=== PATIENT | male | born 1945 | race Two or more races ===

== ENCOUNTER 2023-05-29 20:57 | Inpatient (IN) | payer MEDICARE, OTHER ==
[~2023-05-29] VITALS: Ht 175.3 cm; Wt 68.5 kg
[2023-05-29 21:51] LABS: Hematocrit 41.7 % (41.0-53.0); Hemoglobin 14.3 g/dL (13.5-17.5); Mean Corpuscular Hgb Conc. 34.3 g/dL (32.0-36.0); Mean Corpuscular Volume 87.6 fL (80.0-100.0); Red Blood Cells 4.76 10^6/uL (4.5-5.90); Red Cell Distribution Width 13.9 % (11.8-14.3); White Blood Cell 19.4 10^3/uL (4.4-10.8)
[2023-05-29 22:03] LABS: Basophils % (manual) 0 (0.0-2.0); Blast Cells 0; Eosinophils % (manual) 0 (0-7); Metamyelocytes % 0; Myelocytes % 0; Promyelocytes % 0; Reactive Lymphocytes 0
[2023-05-29 22:07] LABS: Alanine Aminotransferase 133 U/L (7-40); Albumin 3.5 g/dL (3.2-4.8); Alkaline Phosphatase 129 U/L (46-116); Anion Gap 9 (5-15); Aspartate Aminotransferase 140 U/L (13-40); BUN/Creatinine Ratio 28.5 (10.0-20.0); Blood Urea Nitrogen 37 mg/dL (9-23); Calcium 8.7 mg/dL (8.7-10.4); Carbon Dioxide 22 mmol/L (20-30); Chloride 108 mmol/L (98-107); Glucose 125 mg/dL (74-106); Potassium 3.3 mmol/L (3.5-5.1); Sodium 139 mmol/L (136-145)
[2023-05-29 22:08] LABS: Bilirubin, Total 1.7 mg/dL (0.2-1.0); Lactic Acid w/Reflex 2.2 mmol/L (0.4-2.0); Total Protein 6.1 g/dL (5.7-8.2)
[2023-05-29 22:15] VITALS: PULSE 115; RESP 33; O2SAT 90
[2023-05-29 22:37] LABS: Anisocytosis Slight; Band Neutrophils % (manual) 7; Lymphocytes % (manual) 2 (10.0-50.0); Monocytes % (manual) 2 (0-12); Platelet Estimate Decreased
[2023-05-30] VITALS (7 sets, daily range): BP systolic 101–113; BP diastolic 61–75; PULSE 61–95; RESP 16–18; TEMP 97.2–98.3; O2SAT 95–97
[2023-05-30] MEDS ORDERED: cefTRIAXone 1GM/50ML D5W 50 ML IV ONE (01:45)
[2023-05-30] MEDS ORDERED: LACTATED RINGER'S 2,700 ML IV ONE (01:45)
[2023-05-30] MEDS ORDERED: AZITHROMYCIN 500MG/ 250ML 250 ML IV ONE (01:45)
[2023-05-30 01:57] LABS: COVID19 ANTIGEN SOFIA FIA NEGATIVE (NEGATIVE)
[2023-05-30 01:58] LABS: Rapid Influenza A Negative (Negative); Rapid Influenza B Negative (Negative)
[2023-05-30] MEDS ORDERED: NITROGLYCERIN 0.4 MG SL TAB SL PRN (05:15)
[2023-05-30] MEDS ORDERED: MORPHINE SULFATE INJ 2 MG/ml SYRG IV PRN (05:15)
[2023-05-30] MEDS ORDERED: ACETAMINOPHEN 325 MG TAB PO PRN (05:15)
[2023-05-30] MEDS ORDERED: POTASSIUM CHL 20 Meq TABLET PO ONE (05:15)
[2023-05-30] MEDS ORDERED: ONDANSETRON HCL 4 MG/2 ML VIAL IV PRN (05:15)
[2023-05-30 07:06] LABS: Urine Bacteria MANY /hpf (None Seen); Urine Blood 3+ /uL (Negative); Urine Clarity CLOUDY (Clear); Urine Color Yellow (Yellow); Urine Protein, UAD 1+ (Negative); Urine Specific Gravity 1.012 (1.001-1.035); Urine Urobilinogen Normal (Negative); Urine WBC 460 /hpf (0 - 3); Urine pH 6.5 (5.0-8.0)
[2023-05-30] MEDS: ENOXAPARIN SOD 40 MG/0.4 ML SYRINGE SC SCH (08:56)
[2023-05-30] MEDS: PANTOPRAZOLE 40 MG TAB PO SCH (08:57)
[2023-05-30] MEDS: SODIUM CHLORIDE 0.9% 1,000 ML IV SCH ×2 (13:30→20:10)
[2023-05-31 01:00] VITALS: BP 115/73; PULSE 70; RESP 16; TEMP 98.4; O2SAT 93
[2023-05-31] MEDS: SODIUM CHLORIDE 0.9% 1,000 ML IV SCH ×4 (02:50→22:50)
[2023-05-31 06:40] LABS: Basophils # (auto) 0 10 ^3/uL (0-0.2); Basophils % (auto) 0.1 % (0.0-2.0); Eosinophils # (auto) 0 10 ^3/uL (0-0.8); Eosinophils % (auto) 0.1 % (0.0-7.0); Hematocrit 37.6 % (41.0-53.0); Lymphocytes % (auto) 6.1 % (10.0-50.0); Mean Corpuscular Hemoglobin 30.2 pg (28.0-32.0); Mean Corpuscular Hgb Conc. 34.6 g/dL (32.0-36.0); Mean Corpuscular Volume 87.3 fL (80.0-100.0); Monocytes # (auto) 0.9 10 ^3/uL (0-1.3); Monocytes % (auto) 5.3 % (0.0-12.0); Neutrophils # (auto) 14.9 10 ^3/uL (1.6-8.6); Neutrophils % (auto) 88.4 % (37.0-80.0); Red Blood Cells 4.31 10^6/uL (4.5-5.90); Red Cell Distribution Width 14.1 % (11.8-14.3); White Blood Cell 16.8 10^3/uL (4.4-10.8)
[2023-05-31 06:47] LABS: INR 1.29 (0.9-1.15); Prothrombin Time 13.3 sec (9.3-11.8)
[2023-05-31 06:54] LABS: Alanine Aminotransferase 138 U/L (7-40); Alkaline Phosphatase 77 U/L (46-116); Anion Gap 8 (5-15); Aspartate Aminotransferase 115 U/L (13-40); BUN/Creatinine Ratio 20.9 (10.0-20.0); Blood Urea Nitrogen 19 mg/dL (9-23); Calcium 7.9 mg/dL (8.7-10.4); Carbon Dioxide 27 mmol/L (20-30); Chloride 111 mmol/L (98-107); Glucose 119 mg/dL (74-106); Potassium 3.2 mmol/L (3.5-5.1)
[2023-05-31 06:55] LABS: Bilirubin, Total 1.1 mg/dL (0.2-1.0); Total Protein 4.8 g/dL (5.7-8.2)
[2023-05-31 07:01] LABS: Sodium 146 mmol/L (136-145)
[2023-05-31 08:06] LABS: PSA Free 0.22 ng/mL; Prostate Specific Antigen 3.1 ng/mL (0.0-4.0)
[2023-05-31 08:15] VITALS: O2SAT 96
[2023-05-31 08:20] VITALS: PULSE 35
[2023-05-31 09:00] VITALS: BP 112/69; PULSE 66; RESP 14; TEMP 98.6; O2SAT 93
[2023-05-31] MEDS: cefTRIAXone 1GM/50ML D5W 50 ML IV SCH (10:17)
[2023-05-31] MEDS: ENOXAPARIN SOD 40 MG/0.4 ML SYRINGE SC SCH (10:19)
[2023-05-31] MEDS: PANTOPRAZOLE 40 MG TAB PO SCH (10:19)
[2023-05-31] MEDS: AZITHROMYCIN 500MG/ 250ML 250 ML IV SCH (10:20)
[2023-05-31 17:00] VITALS: BP 120/70; PULSE 67; RESP 18; TEMP 98.9; O2SAT 94
[2023-05-31 20:00] VITALS: PULSE 80; PULSE 81; RESP 20; O2SAT 95
[2023-06-01] VITALS (7 sets, daily range): BP systolic 131–148; BP diastolic 84–89; PULSE 66–74; RESP 16–18; TEMP 97.9–99.8; O2SAT 94–95
[2023-06-01] MEDS: SODIUM CHLORIDE 0.9% 1,000 ML IV SCH ×3 (05:30→18:33)
[2023-06-01 08:06] LABS: AFP Serum Tumor Marker <1.8 ng/mL (0.0-8.4)
[2023-06-01] MEDS: cefTRIAXone 1GM/50ML D5W 50 ML IV SCH (08:38)
[2023-06-01] MEDS: ENOXAPARIN SOD 40 MG/0.4 ML SYRINGE SC SCH (09:23)
[2023-06-01] MEDS: AZITHROMYCIN 500MG/ 250ML 250 ML IV SCH (09:23)
[2023-06-01 12:07] LABS: Anti-Nuclear Antibody Direct Negative (Negative)
[2023-06-01 13:29] LABS: Hepatitis B Core Total AB Negative (Negative)
[2023-06-01 13:30] LABS: Hepatitis A Total Antibody Positive (Negative); Hepatitis B Surface Antibody Negative (Negative); Hepatitis B Surface Antigen Negative (Negative); Hepatitis C Antibody Negative (Negative)
[2023-06-01] MEDS ORDERED: ERTAPENEM SOD INJ 1 GM in SODIUM CHL 0.9% 50 ML IV ONE (14:15)
[2023-06-02] VITALS (7 sets, daily range): BP systolic 115–139; BP diastolic 75–90; PULSE 66–92; RESP 16–20; TEMP 97.7–98.7; O2SAT 93–96
[2023-06-02] MEDS: SODIUM CHLORIDE 0.9% 1,000 ML IV SCH ×4 (01:30→21:30)
[2023-06-02] MEDS: AZITHROMYCIN 500MG/ 250ML 250 ML IV SCH (09:25)
[2023-06-02] MEDS: ENOXAPARIN SOD 40 MG/0.4 ML SYRINGE SC SCH (09:27)
[2023-06-02] MEDS: ERTAPENEM SOD INJ 1 GM in SODIUM CHL 0.9% 50 ML IV SCH ×2 (10:55→12:31)
[2023-06-03 05:00] VITALS: BP 123/80; PULSE 77; RESP 17; TEMP 99.3; O2SAT 98
[2023-06-03] MEDS: SODIUM CHLORIDE 0.9% 1,000 ML IV SCH ×2 (05:50→11:45)
[2023-06-03 07:24] LABS: Basophils # (auto) 0 10 ^3/uL (0-0.2); Basophils % (auto) 0.4 % (0.0-2.0); Eosinophils # (auto) 0.1 10 ^3/uL (0-0.8); Eosinophils % (auto) 0.8 % (0.0-7.0); Hematocrit 37.1 % (41.0-53.0); Hemoglobin 12.7 g/dL (13.5-17.5); Lymphocytes # (auto) 1.2 10 ^3/uL (0.4-5.4); Lymphocytes % (auto) 10.8 % (10.0-50.0); Mean Corpuscular Hgb Conc. 34.3 g/dL (32.0-36.0); Mean Corpuscular Volume 87.6 fL (80.0-100.0); Monocytes # (auto) 0.7 10 ^3/uL (0-1.3); Neutrophils # (auto) 9.3 10 ^3/uL (1.6-8.6); Red Blood Cells 4.23 10^6/uL (4.5-5.90); White Blood Cell 11.3 10^3/uL (4.4-10.8)
[2023-06-03 08:00] VITALS: PULSE 71; PULSE 87; RESP 20
[2023-06-03 08:05] LABS: Alanine Aminotransferase 122 U/L (7-40); Albumin 2.8 g/dL (3.2-4.8); Alkaline Phosphatase 65 U/L (46-116); Aspartate Aminotransferase 75 U/L (13-40); BUN/Creatinine Ratio 12.7 (10.0-20.0); Blood Urea Nitrogen 10 mg/dL (9-23); Calcium 8.2 mg/dL (8.5-10.1); Carbon Dioxide 25 mmol/L (20-30); Glucose 102 mg/dL (74-106)
[2023-06-03 08:06] LABS: Bilirubin, Total 1.2 mg/dL (0.2-1.0); Total Protein 5.3 g/dL (5.7-8.2)
[2023-06-03] MEDS: ERTAPENEM SOD INJ 1 GM in SODIUM CHL 0.9% 50 ML IV SCH (08:20)
[2023-06-03 08:45] LABS: Anion Gap 6 (5-15); Chloride 109 mmol/L (98-107); Potassium 3.5 mmol/L (3.5-5.1); Sodium 140 mmol/L (136-145)
[2023-06-03 09:58] VITALS: BP 122/71; PULSE 87; RESP 20; TEMP 99.1; O2SAT 95
[2023-06-03] MEDS: AZITHROMYCIN 500MG/ 250ML 250 ML IV SCH (11:44)
[2023-06-03] MEDS: ENOXAPARIN SOD 40 MG/0.4 ML SYRINGE SC SCH (11:44)
[2023-06-03 13:14] LABS: COVID19 ANTIGEN SOFIA FIA NEGATIVE (NEGATIVE)
[2023-06-03 13:20] VITALS: BP 130/76; PULSE 82; RESP 18; O2SAT 93
[2023-06-03 15:10] VITALS: BP 122/71; PULSE 87; RESP 20; TEMP 37.3; O2SAT 95
[2023-06-03 16:14] VITALS: BP 139/76; PULSE 92; RESP 22; TEMP 99.1; O2SAT 95
== END 2023-06-03 18:00 | DRG 871 ==
LOC: EDBD 20:57 → ER 20:57 → TELE 05-30 05:18 → TELE-WESTW 05-30 08:35
PROVIDERS: ADMIT Nurse Practitioner; ATTEND Family Medicine
PROC: 05HC33Z Insertion of Infusion Device into Left Basilic Vein, Percutaneous Approach (ICD-10-PCS; principal; 2023-06-02)
PROC: B54NZZA Ultrasonography of Left Upper Extremity Veins, Guidance (ICD-10-PCS; 2023-06-02)
DX: A41.51 Sepsis due to Escherichia coli [E. coli] (principal); G93.41 Metabolic encephalopathy; J96.01 Acute respiratory failure with hypoxia; J18.9 Pneumonia, unspecified organism; R65.21 Severe sepsis with septic shock; N39.0 Urinary tract infection, site not specified; J98.11 Atelectasis; Z16.12 Extended spectrum beta lactamase (ESBL) resistance; E87.20 Acidosis, unspecified; E87.6 Hypokalemia; E86.0 Dehydration; I10 Essential (primary) hypertension; N40.1 Benign prostatic hyperplasia with lower urinary tract symptoms; F03.90 Unspecified dementia, unspecified severity, without behavioral disturbance, psychotic disturbance, mood disturbance, and anxiety; N39.490 Overflow incontinence; N39.498 Other specified urinary incontinence; R79.89 Other specified abnormal findings of blood chemistry; Z20.822 Contact with and (suspected) exposure to COVID-19; R74.01 Elevation of levels of liver transaminase levels
CPT/HCPCS: 36415; 71045; 71250; 74176; 76705; 80053; 81001; 82105; 82140; 82728; 83605; 84154; 85007; 85025; 85027; 85610; 86038; 86704; 86706; 86708; 86803; 87040; 87077; 87086; 87088; 87186; 87340; 87426; 87804; 93005; 96365; 96366; 96367; 97110; 97116; 97163; 97530; G0378; J0696; J1335

== ENCOUNTER 2023-06-12 16:09 | Inpatient (IN) | payer MEDICARE ==
[~2023-06-12] VITALS: Ht 170.2 cm; Wt 63.7 kg
[2023-06-12 16:30] VITALS: PULSE 106; RESP 26; O2SAT 95
[2023-06-12] MEDS ORDERED: SODIUM CHLORIDE 0.9% 2,100 ML IV ONE (16:45)
[2023-06-12] MEDS ORDERED: metroNIDAZOLE 500MG/100ML 100 ML IV ONE (16:45)
[2023-06-12] MEDS ORDERED: cefTRIAXone 1GM/50ML D5W 50 ML IV ONE (16:45)
[2023-06-12 17:01] LABS: Eosinophils # (auto) 0 10 ^3/uL (0-0.8); Eosinophils % (auto) 0.1 % (0.0-7.0); Neutrophils # (auto) 9.9 10 ^3/uL (1.6-8.6)
[2023-06-12 17:03] LABS: Basophils # (auto) 0.1 10 ^3/uL (0-0.2); Basophils % (auto) 0.5 % (0.0-2.0); Hematocrit 41.2 % (41.0-53.0); Hemoglobin 13.7 g/dL (13.5-17.5); Lymphocytes # (auto) 1.3 10 ^3/uL (0.4-5.4); Lymphocytes % (auto) 10.7 % (10.0-50.0); Mean Corpuscular Hemoglobin 29.6 pg (28.0-32.0); Mean Corpuscular Hgb Conc. 33.3 g/dL (32.0-36.0); Mean Corpuscular Volume 88.9 fL (80.0-100.0); Monocytes # (auto) 0.8 10 ^3/uL (0-1.3); Monocytes % (auto) 6.3 % (0.0-12.0); Neutrophils % (auto) 82.4 % (37.0-80.0); Red Blood Cells 4.64 10^6/uL (4.5-5.90); Red Cell Distribution Width 14.1 % (11.8-14.3); White Blood Cell 12.1 10^3/uL (4.4-10.8)
[2023-06-12 17:13] LABS: Urine Bacteria NONE SEEN /hpf (None Seen); Urine Blood 3+ /uL (Negative); Urine Clarity Clear (Clear); Urine Color RED (Yellow); Urine Protein, UAD 2+ (Negative); Urine Specific Gravity 1.017 (1.001-1.035); Urine WBC 189 /hpf (0 - 3)
[2023-06-12 17:21] LABS: Alanine Aminotransferase 55 U/L (7-40); Albumin 3.3 g/dL (3.2-4.8); Alkaline Phosphatase 74 U/L (46-116); Anion Gap 7 (5-15); Aspartate Aminotransferase 26 U/L (13-40); BUN/Creatinine Ratio 27.1 (10.0-20.0); Blood Alcohol < 3.0 mg/dL (<10); Blood Urea Nitrogen 26 mg/dL (9-23); Calcium 11.6 mg/dL (8.5-10.1); Carbon Dioxide 28 mmol/L (20-30); Chloride 105 mmol/L (98-107); Glucose 120 mg/dL (74-106); Potassium 4.1 mmol/L (3.5-5.1); Sodium 140 mmol/L (136-145); Total Protein 6.6 g/dL (5.7-8.2)
[2023-06-12 19:30] VITALS: PULSE 79; RESP 20; O2SAT 98
[2023-06-12] MEDS ORDERED: ACETAMINOPHEN 325 MG TAB PO PRN (21:00)
[2023-06-12] MEDS ORDERED: ONDANSETRON HCL 4 MG/2 ML VIAL IV PRN (21:00)
[2023-06-13] MEDS ORDERED: ALBUMIN 5% 250 ML IV ONE (03:15)
[2023-06-13 04:54] LABS: Basophils # (auto) 0 10 ^3/uL (0-0.2); Basophils % (auto) 0.4 % (0.0-2.0); Eosinophils # (auto) 0.1 10 ^3/uL (0-0.8); Eosinophils % (auto) 1.3 % (0.0-7.0); Hemoglobin 11.3 g/dL (13.5-17.5); Lymphocytes # (auto) 1.2 10 ^3/uL (0.4-5.4); Lymphocytes % (auto) 15.2 % (10.0-50.0); Mean Corpuscular Hemoglobin 29.7 pg (28.0-32.0); Mean Corpuscular Hgb Conc. 33.3 g/dL (32.0-36.0); Mean Corpuscular Volume 89.1 fL (80.0-100.0); Monocytes # (auto) 0.5 10 ^3/uL (0-1.3); Neutrophils # (auto) 5.9 10 ^3/uL (1.6-8.6); Neutrophils % (auto) 76.1 % (37.0-80.0); Nucleated Red Blood Cells % 0.1 %; Red Blood Cells 3.82 10^6/uL (4.5-5.90); Red Cell Distribution Width 13.8 % (11.8-14.3); White Blood Cell 7.8 10^3/uL (4.4-10.8)
[2023-06-13 05:13] LABS: Alanine Aminotransferase 35 U/L (7-40); Alkaline Phosphatase 54 U/L (46-116); Anion Gap 5 (5-15); Aspartate Aminotransferase 21 U/L (13-40); BUN/Creatinine Ratio 22.2 (10.0-20.0); Bilirubin, Total 0.7 mg/dL (0.2-1.0); Blood Urea Nitrogen 20 mg/dL (9-23); Calcium 10.6 mg/dL (8.5-10.1); Carbon Dioxide 29 mmol/L (20-30); Chloride 113 mmol/L (98-107); Glucose 108 mg/dL (74-106); Potassium 3.5 mmol/L (3.5-5.1); Total Protein 5.8 g/dL (5.7-8.2)
[2023-06-13 05:17] LABS: Sodium 147 mmol/L (136-145)
[2023-06-13 08:00] VITALS: PULSE 70; RESP 13; O2SAT 98
[2023-06-13] MEDS ORDERED: cefTRIAXone 1GM/50ML D5W 50 ML IV SCH (09:00)
[2023-06-13] MEDS: ENOXAPARIN SOD 40 MG/0.4 ML SYRINGE SC SCH (09:39)
[2023-06-13] MEDS ORDERED: ERTAPENEM SOD INJ 1 GM in SODIUM CHL 0.9% 50 ML IV ONE (11:15)
[2023-06-13] MEDS: Ensure HIGH Protein Vanilla 8oz Bottle PO SCH ×2 (13:41→18:53)
[2023-06-13 21:12] VITALS: PULSE 90; RESP 16; O2SAT 98
[2023-06-14 00:13] VITALS: BP 128/73; PULSE 90; RESP 19; TEMP 97.1; O2SAT 97
[2023-06-14 08:00] VITALS: PULSE 65; RESP 18; O2SAT 94
[2023-06-14] MEDS: Ensure HIGH Protein Vanilla 8oz Bottle PO SCH ×3 (08:00→18:54)
[2023-06-14 13:00] VITALS: BP 100/59; PULSE 79; RESP 16; TEMP 97.9; O2SAT 91
[2023-06-14 16:56] VITALS: BP 112/64; PULSE 75; RESP 16; TEMP 97.5; O2SAT 92
[2023-06-14] MEDS: ENOXAPARIN SOD 40 MG/0.4 ML SYRINGE SC SCH (17:04)
[2023-06-14] MEDS: ERTAPENEM SOD INJ 1 GM in SODIUM CHL 0.9% 50 ML IV SCH (17:04)
[2023-06-14 20:00] VITALS: BP 126/80; PULSE 88; RESP 18; TEMP 98.2; O2SAT 3
[2023-06-14 22:00] VITALS: BP 126/80; PULSE 88; RESP 18; TEMP 98.2; O2SAT 93
[2023-06-15 04:31] VITALS: BP 131/80; PULSE 71; RESP 18; TEMP 97.9; O2SAT 95
[2023-06-15 09:00] VITALS: BP 108/74; PULSE 76; RESP 16; TEMP 97.9; O2SAT 95
[2023-06-15 09:09] LABS: Hepatitis B Surface Antigen Negative (Negative)
[2023-06-15 09:31] LABS: Hepatitis C Antibody Negative (Negative)
[2023-06-15] MEDS: ENOXAPARIN SOD 40 MG/0.4 ML SYRINGE SC SCH (10:34)
[2023-06-15] MEDS: Ensure HIGH Protein Vanilla 8oz Bottle PO SCH ×3 (10:35→18:50)
[2023-06-15] MEDS: ERTAPENEM SOD INJ 1 GM in SODIUM CHL 0.9% 50 ML IV SCH (10:35)
[2023-06-15 12:54] LABS: COVID19 ANTIGEN SOFIA FIA NEGATIVE (NEGATIVE)
[2023-06-15 13:00] VITALS: BP 102/73; PULSE 87; RESP 16; TEMP 97.6; O2SAT 97
[2023-06-15 17:00] VITALS: BP 138/75; PULSE 78; RESP 16; TEMP 98; O2SAT 94
[2023-06-15 21:30] VITALS: BP 115/68; PULSE 89; RESP 16; TEMP 98.3; O2SAT 93
[2023-06-16 05:00] VITALS: BP 100/70; PULSE 81; RESP 16; TEMP 98.5; O2SAT 94
[2023-06-16 08:00] VITALS: PULSE 76; RESP 18; O2SAT 92
[2023-06-16] MEDS: Ensure HIGH Protein Vanilla 8oz Bottle PO SCH ×2 (08:51→13:18)
[2023-06-16 09:18] VITALS: BP 96/67; PULSE 76; RESP 18; TEMP 98.5; O2SAT 92
[2023-06-16] MEDS: ERTAPENEM SOD INJ 1 GM in SODIUM CHL 0.9% 50 ML IV SCH (09:38)
[2023-06-16] MEDS: ENOXAPARIN SOD 40 MG/0.4 ML SYRINGE SC SCH (09:38)
[2023-06-16 13:00] VITALS: BP 108/71; PULSE 79; RESP 18; TEMP 98.4; O2SAT 93
[2023-06-16 13:52] VITALS: BP 108/71; PULSE 79; RESP 18; TEMP 98.4; O2SAT 93
== END 2023-06-16 14:45 | disposition home health service (06) | DRG 871 ==
LOC: EDBD 16:09 → ER 16:09 → OVERFLOW 20:48 → WEST WING 06-13 22:10
PROVIDERS: ADMIT Nurse Practitioner; ATTEND Family Medicine
DX: A41.9 Sepsis, unspecified organism (principal); G93.41 Metabolic encephalopathy; R64 Cachexia; E86.0 Dehydration; N30.90 Cystitis, unspecified without hematuria; N40.0 Benign prostatic hyperplasia without lower urinary tract symptoms; Z20.822 Contact with and (suspected) exposure to COVID-19; Z68.24 Body mass index [BMI] 24.0-24.9, adult
CPT/HCPCS: 36415; 70450; 70551; 71045; 74176; 80053; 80320; 81001; 82962; 83605; 84484; 85025; 86803; 87040; 87086; 87340; 87426; 93005; 96365; 97163; G0378; J0696; J1335; J3490